=== PATIENT | female | born 1965 | race African-American/Black ===

== ENCOUNTER 2019-01-30 23:02 | Emergency (ER) | payer OTHER ==
[2019-01-30 23:10] VITALS: BP 135/70; PULSE 69; TEMP 98; BMI 17.7
--- NOTE | 2019-01-30 23:19 | PDOC ---
*Physical Exam - Vital Signs Last Vital Signs Temp Pulse Resp BP Pulse Ox 98.0 F 69 16 135/70 100 01/30/19 23:08 01/30/19 23:08 01/30/19 23:08 01/30/19 23:08 01/30/19 23:08 ED Treatment Course - LABORATORY CBC & Chemistry Diagram: 01/31/19 00:00 01/31/19 00:00 Medical Decision Making - Medical Decision Making 01/30/19 23:19 Patient seen by the advanced practice provider under my direct supervision. Ancillary testing reviewed as necessary. I agree with plan as outlined by the advanced practice provider. *DC/Admit/Observation/Transfer Diagnosis at time of Disposition: Needle stick injury of finger of left hand Qualifiers: Encounter type: initial encounter Qualified Code(s): S61.239A - Puncture wound without foreign body of unspecified finger without damage to nail, initial encounter - Discharge Dispostion Disposition: HOME - Referrals - Patient Instructions Printed Discharge Instructions: How to Handle Body Fluid Exposure -- Healthcare Worker Additional Instructions: please follow up with your doctor/ occupational health as soon as possible. - Post Discharge Activity Forms/Work/School Notes: Back to Work
--- NOTE | 2019-01-30 23:24 | PDOC ---
Post Exposure HPI - General Chief Complaint: Blood/Body Fluid Exposure SJR Stated Complaint: Blood/Body Fluid Exposure SJR Time Seen by Provider: 01/30/19 23:10 - History of Present Illness Initial Comments: 01/30/19 23:21 54 year old female [employer] employee s/p needle stick injury to left thumb. patient reports that she scratch the skin with the needle. patient immediately washed hands Source patient ( Janneth [id number]): recent HCV/ HBV negative. Past History - Past Medical History Allergies/Adverse Reactions: Allergies Allergy/AdvReac Type Severity Reaction Status Date / Time Sulfa (Sulfonamide Allergy Verified 01/30/19 23:10 Antibiotics) COPD: No - Suicide/Smoking/Psychosocial Hx Smoking History: Unknown if ever smoked Have you smoked in the past 12 months: No Information on smoking cessation initiated: No Hx Alcohol Use: No Drug/Substance Use Hx: No Review of Systems - Review of Systems Able to Perform ROS?: Yes Is the patient limited [place] proficient: No Integumentary: Yes: Other (needlestick injury) *Physical Exam - Vital Signs Last Vital Signs Temp Pulse Resp BP Pulse Ox 98.0 F 69 16 135/70 100 01/30/19 23:08 01/30/19 23:08 01/30/19 23:08 01/30/19 23:08 01/30/19 23:08 - Physical Exam General Appearance: Yes: Appropriately Dressed Integumentary: positive: Other (abrasion to right thumb) Progress Note - Progress Note Progress Note: A: needle stick injury P: source patient recent negative HCV/HBV. PEP occupational health follow up. Medical Decision Making - Medical Decision Making 01/31/19 00:48 patient left before d/c instructions and PEP were given *DC/Admit/Observation/Transfer Diagnosis at time of Disposition: Needle stick injury of finger of left hand Qualifiers: Encounter type: initial encounter Qualified Code(s): S61.239A - Puncture wound without foreign body of unspecified finger without damage to nail, initial encounter - Discharge Dispostion Disposition: HOME - Referrals - Patient Instructions Printed Discharge Instructions: How to Handle Body Fluid Exposure -- Healthcare Worker Additional Instructions: please follow up with your doctor/ occupational health as soon as possible. - Post Discharge Activity Forms/Work/School Notes: Back to Work
[2019-01-31 00:21] LABS: BASO % 0.9 % (0-2.0); HEMATOCRIT 46.2 % (32.4-45.2); HEMOGLOBIN 14.9 GM/dL (10.7-15.3); MCH 32.3 pg (25.7-33.7); MCHC 32.2 g/dl (32.0-36.0); MEAN CELL VOLUME 100.1 fl (80-96); MEAN PLT VOLUME 8.6 fl (7.5-11.1); MONO % 11.7 % (3.8-10.2); NEUT % 47.4 % (42.8-82.8); PLATELET COUNT 221 K/MM3 (134-434); RBC 4.61 M/mm3 (3.60-5.2); RDW 13.7 % (11.6-15.6); WHITE BLOOD COUNT 4.7 K/mm3 (4.0-10.0)
[2019-01-31] MEDS ORDERED: HIV POST EXPOSURE PROPHYLAXIS KIT NR ONE (00:23)
[2019-01-31] MEDS ORDERED: HIV POST EXPOSURE PROPHYLAXIS KIT PO ONE (00:43)
[2019-01-31 01:36] LABS: ALBUMIN 4.5 g/dl (3.4-5.0); BILIRUBIN,TOTAL 0.5 mg/dL (0.2-1); CREATININE 0.8 mg/dL (0.55-1.3); PHOSPHOROUS 3.6 mg/dL (2.5-4.9); POTASSIUM 3.8 mmol/L (3.5-5.1); TOT PROT 7.8 g/dl (6.4-8.2)
[2019-01-31 01:51] LABS: URIC ACID 3.9 mg/dL (2.6-7.2)
[2019-02-01 02:11] LABS: HBsAG SCREEN Negative (Negative)
== END 2019-01-31 00:15 | disposition home or self-care (01) ==
LOC: JER 23:02
DX: Z77.21 Contact with and (suspected) exposure to potentially hazardous body fluids (principal); W46.1XXA Contact with contaminated hypodermic needle, initial encounter; Y93.9 Activity, unspecified; Y92.9 Unspecified place or not applicable; Y99.0 Civilian activity done for income or pay
CPT/HCPCS: 36415; 80053; 82465; 82977; 83615; 84100; 84478; 84550; 85025; 86317; 86706; 86803; 87340; 87389; 99281-25